=== PATIENT | female | born 1960 | race Caucasian/White ===

== ENCOUNTER 2016-02-25 12:54 | Outpatient (RCR) | payer BC ==
--- OUTSIDE RECORDS SUMMARY | 2016-02-18 11:45 | XMS REPORT | Continuity of Care Document ---
Author Author [facility] Organization [facility] Address Unknown Phone Unavailable Care Team Providers Care Film Waxer Name Role Phone JULIOCESAR MEJÍA PCP Insurance Providers Payer Name Policy Number Subscriber Name Relationship [facility] [id number] Gay Bauman 16 Self / Same As Patient Problems No known problems or medical conditions. Medications No known medications. Social History Social History Problem Response Recorded Date/Time Recent Foreign Travel N [place] 06/11/2014 3:15pm Hospital Discharge Instructions No hospital discharge instructions. Plan of Care No plan of care. Functional Status No functional status results. Allergies, Adverse Reactions, Alerts No known allergies. Immunizations No immunization records. Vital Signs No known vital signs results. Results Laboratory Results Test Name Result Units Flags Reference Collection Date/Time Result Date/ Time Comments White Blood Count 7.6 10^3/uL 4.3-11.0 06/11/2014 4:17pm 06/11/2014 4: 28pm Red Blood Count 5.02 10^6/uL 4.35-5.85 06/11/2014 4:17pm 06/11/2014 4: 28pm Hemoglobin 16.3 G/DL H 11.5-16.0 06/11/2014 4:17pm 06/11/2014 4:28pm Hematocrit 47 % 35-52 06/11/2014 4:17pm 06/11/2014 4:28pm Mean Corpuscular Volume 94 FL 80-99 06/11/2014 4:1706/11/2014 4: 28pm Mean Corpuscular Hemoglobin 32 PG 25-34 06/11/2014 4:06/11/2014 4: 28pm Mean Corpuscular Hemoglobin Concent 34 G/DL 32-36 06/11/2014 4: 4:28pm Red Cell Distribution Width 12.9 % 10.0-14.5 06/11/2014 4:2014 4:28pm Platelet Count 234 10^3/uL 130-400 06/11/2014 4:06/11/2014 4:28pm Mean Platelet Volume 10.4 FL 7.4-10.4 06/11/2014 4:06/11/2014 4: 28pm Neutrophils (%) (Auto) 63 % 42-75 06/11/2014 4:06/11/2014 4:28pm Lymphocytes (%) (Auto) 26 % 12-44 06/11/2014 4:06/11/2014 4:28pm Monocytes (%) (Auto) 8 % 0-12 06/11/2014 4:06/11/2014 4:28pm Eosinophils (%) (Auto) 3 % 0-10 06/11/2014 4:06/11/2014 4:28pm Basophils (%) (Auto) 1 % 0-10 06/11/2014 4:06/11/2014 4:28pm Neutrophils # (Auto) 4.8 X 10^3 1.8-7.8 06/11/2014 4:06/11/2014 4: 28pm Lymphocytes # (Auto) 2.0 X 10^3 1.0-4.0 06/11/2014 4:06/11/2014 4: 28pm Monocytes # (Auto) 0.6 X 10^3 0.0-1.0 06/11/2014 4:06/11/2014 4: 28pm Eosinophils # (Auto) 0.2 10^3/uL 0.0-0.3 06/11/2014 4:06/11/2014 4 :28pm Basophils # (Auto) 0.1 10^3/uL 0.0-0.1 06/11/2014 4:06/11/2014 4: 28pm Absolute Reticulocyte Count 71 10e9/L 24-90 06/11/2014 4:2014 4:28pm Percent Reticulocyte Count 1.42 % 0.50-2.40 06/11/2014 4:pm 2014 4:28pm Sodium Level 139 MMOL/L 135-145 06/11/2014 4:06/11/2014 4:55pm Potassium Level 3.6 MMOL/L 3.6-5.0 06/11/2014 4:06/11/2014 4:55pm Chloride Level 105 MMOL/L 98-107 06/11/2014 4:06/11/2014 4:55pm Carbon Dioxide Level 25 MMOL/L 21-32 06/11/2014 4:06/11/2014 4: 55pm Blood Urea Nitrogen 21 MG/DL H 7-18 06/11/2014 4:06/11/2014 4:55pm Creatinine 0.91 MG/DL 0.60-1.30 06/11/2014 4:06/11/2014 4:55pm BUN/Creatinine Ratio 06/11/2014 4:06/11/2014 4:55pm Estimat Glomerular Filtration Rate > 60 06/11/2014 4:2014 4:55pm GFR INTERPRETIVE DATA UNITS FOR ESTIMATED GFR (eGFR): mL/min/1.73 M2 REFERENCE RANGE FOR ESTIMATED GFR (eGFR) eGFR NORMAL eGFR >60 MODERATELY DECREASED eGFR 30-59 SEVERLY DECREASED eGFR 15-29 KIDNEY FAILURE <15 (OR DIALYSIS) Glucose Level 88 MG/DL 70-105 06/11/2014 4:06/11/2014 4:55pm Calcium Level 9.8 MG/DL 8.5-10.1 06/11/2014 4:06/11/2014 4:55pm Total Bilirubin 0.4 MG/DL 0.1-1.0 06/11/2014 4:06/11/2014 4:55pm Alkaline Phosphatase 64 U/L 40-136 06/11/2014 4:06/11/2014 4:55pm Aspartate Amino Transf (AST/SGOT) 25 U/L 5-34 06/11/2014 4:2014 4:55pm Alanine Aminotransferase (ALT/SGPT) 26 U/L 0-55 06/11/2014 4:17pm 06/11 4:55pm Lactate Dehydrogenase 246 U/L H 125-220 06/11/2014 4:17pm 06/11/2014 4: 55pm Total Protein 7.6 G/DL 6.4-8.2 06/11/2014 4:17pm 06/11/2014 4:55pm Albumin 4.5 G/DL 3.2-4.5 06/11/2014 4:17pm 06/11/2014 4:55pm Carboxyhemoglobin 2.0 % 0.5-2.5 06/11/2014 4:17pm 06/11/2014 4:36pm REFERENCE RANGE=0.5% - 2.5% SMOKERS=0.5% - 6.0% TOXIC LEVELS=>10% Erythropoietin 9.7 MIU/ML 2.6-18.5 06/11/2014 4:17pm 06/17/2014 8:15am THIS TEST WAS PERFORMED AT: [facility] [address] [id number] Ferritin 293 H NG/ML 15-150 06/11/2014 4:17pm 06/13/2014 3:24pm RESULT ON [facility] LELXUHOJP=128 NG/ML --- 06/13/14 1522 --- FERRITIN previously reported as: 293 H NG/ML Iron Level 106 UG/DL 35-180 06/11/2014 4:17pm 06/13/2014 3:24pm RESULT ON [facility] [id number]=086 UG/DL --- 06/13/14 1523 --- IRON previously reported as: 106 UG/DL Transferrin % Saturation 37 % 15-50 06/11/2014 4:17pm 06/13/2014 3: 24pm RESULT ON [facility] WASTE RECLAIMER=41% --- 06/13/14 1523 --- % SATURATION previously reported as: 37 % Total Iron Binding Capacity 284 UG/DL 280-380 06/11/2014 4:17pm 2014 3:24pm TESTING PERFORMED BY: [facility] [id number] [facility] [address] [place] [address] RESULT ON [facility] MZRUFEJYK=966 UG/DL --- 06/13/14 1523 --- TIBC previously reported as: 284 UG/DL TESTING PERFORMED BY: [facility] [address] [place] [address] Procedures No known history of procedures. Encounters Encounter Location Date/Time Discharged Recurring [facility] 07/01/14 1:31pm
[2016-02-18 12:16] LABS: BASOPHILS % (AUTO) 0 % (0-10); EOSINOPHILS # (AUTO) 0.1 10^3/uL (0.0-0.3); EOSINOPHILS % (AUTO) 1 % (0-10); LYMPHOCYTES # (AUTO) 1.6 X 10^3 (1.0-4.0); LYMPHOCYTES % (AUTO) 26 % (12-44); MEAN CORPUSCULAR HEMOGLOBIN 28 PG (25-34); MEAN CORPUSCULAR HGB CONC 33 G/DL (32-36); MEAN CORPUSCULAR VOLUME 86 FL (80-99); MEAN PLATELET VOLUME 10.7 FL (7.4-10.4); MONOCYTES # (AUTO) 0.6 X 10^3 (0.0-1.0); MONOCYTES % (AUTO) 9 % (0-12); NEUTROPHILS # (AUTO) 4.1 X 10^3 (1.8-7.8); NEUTROPHILS % (AUTO) 64 % (42-75); PLATELET COUNT 244 10^3/uL (130-400); RED BLOOD COUNT 5.12 10^6/uL (4.35-5.85); RED CELL DISTRIBUTION WIDTH 15.2 % (10.0-14.5); WHITE BLOOD COUNT 6.4 10^3/uL (4.3-11.0)
[2016-02-18 12:41] LABS: ALBUMIN 4.3 G/DL (3.2-4.5); BILIRUBIN,TOTAL 0.3 MG/DL (0.1-1.0); CALCIUM 9.3 MG/DL (8.5-10.1); CREATININE SERUM 0.98 MG/DL (0.60-1.30); POTASSIUM 3.9 MMOL/L (3.6-5.0)
== END 2016-05-18 | disposition home or self-care (01) ==
LOC: ONC 12:54
PROVIDERS: ATTEND Internal Medicine Hematology & Oncology
DX: E83.110 Hereditary hemochromatosis (principal); D58.2 Other hemoglobinopathies; E66.9 Obesity, unspecified; Z68.30 Body mass index [BMI] 30.0-30.9, adult
CPT/HCPCS: 80053; 82728; 85025; 99213

== ENCOUNTER 2016-06-09 10:17 | Outpatient (RCR) | payer BC ==
--- OUTSIDE RECORDS SUMMARY | 2016-06-09 10:20 | XMS REPORT | Continuity of Care Document ---
Author Author [facility] Organization [facility] Address Unknown Phone Unavailable Care Team Providers Care Cashier Ticket Selling Name Role Phone TRINIDAD MEJÍA DO PCP Insurance Providers Payer Name Policy Number Subscriber Name Relationship [facility] [id number] Jevon Bauman W 01 Problems No problem information available. Medications No medication information available. Social History Social History Problem Response Recorded Date/Time Recent Foreign Travel N [place] 02/18/2016 11:41am Hospital Discharge Instructions No hospital discharge instructions. Plan of Care Prescriptions See Medication Section Functional Status No functional status results. Allergies, Adverse Reactions, Alerts Unable to obtain allergies. Immunizations No immunization records. Vital Signs No known vital signs results. Results Laboratory Results Test Name Result Units Flags Reference Collection Date/Time Result Date/ Time Comments White Blood Count 6.4 10^3/uL 4.3-11.0 02/18/2016 12:00pm 02/18/2016 12 :18pm Red Blood Count 5.12 10^6/uL 4.35-5.85 02/18/2016 12:00pm 02/18/2016 12 :18pm Hemoglobin 14.4 G/DL 11.5-16.0 02/18/2016 12:00pm 02/18/2016 12:18pm Hematocrit 44 % 35-52 02/18/2016 12:00pm 02/18/2016 12:18pm Mean Corpuscular Volume 86 FL 80-99 02/18/2016 12:00pm 02/18/2016 12: 18pm Mean Corpuscular Hemoglobin 28 PG 25-34 02/18/2016 12:00pm 02/18/2016 12:18pm Mean Corpuscular Hemoglobin Concent 33 G/DL 32-36 02/18/2016 12:00pm 12:18pm Red Cell Distribution Width 15.2 % H 10.0-14.5 02/18/2016 12:00pm 2015 12:18pm Platelet Count 244 10^3/uL 130-400 02/18/2016 12:00pm 02/18/2016 12: 18pm Mean Platelet Volume 10.7 FL H 7.4-10.4 02/18/2016 12:00pm 02/18/2016 12: 18pm Neutrophils (%) (Auto) 64 % 42-75 02/18/2016 12:00pm 02/18/2016 12: 18pm Lymphocytes (%) (Auto) 26 % 12-44 02/18/2016 12:00pm 02/18/2016 12: 18pm Monocytes (%) (Auto) 9 % 0-12 02/18/2016 12:00pm 02/18/2016 12:18pm Eosinophils (%) (Auto) 1 % 0-10 02/18/2016 12:00pm 02/18/2016 12:18pm Basophils (%) (Auto) 0 % 0-10 02/18/2016 12:00pm 02/18/2016 12:18pm Neutrophils # (Auto) 4.1 X 10^3 1.8-7.8 02/18/2016 12:00pm 02/18/2016 12:18pm Lymphocytes # (Auto) 1.6 X 10^3 1.0-4.0 02/18/2016 12:00pm 02/18/2016 12:18pm Monocytes # (Auto) 0.6 X 10^3 0.0-1.0 02/18/2016 12:00pm 02/18/2016 12: 18pm Eosinophils # (Auto) 0.1 10^3/uL 0.0-0.3 02/18/2016 12:00pm 02/18/2016 12:18pm Basophils # (Auto) 0.0 10^3/uL 0.0-0.1 02/18/2016 12:00pm 02/18/2016 12 :18pm Sodium Level 139 MMOL/L 135-145 02/18/2016 12:00pm 02/18/2016 12:42pm Potassium Level 3.9 MMOL/L 3.6-5.0 02/18/2016 12:00pm 02/18/2016 12: 42pm Chloride Level 110 MMOL/L H 98-107 02/18/2016 12:00pm 02/18/2016 12:42pm Carbon Dioxide Level 17 MMOL/L L 21-32 02/18/2016 12:00pm 02/18/2016 12: 42pm Anion Gap 12 MMOL/L 5-14 02/18/2016 12:00pm 02/18/2016 12:42pm Blood Urea Nitrogen 16 MG/DL 7-18 02/18/2016 12:00pm 02/18/2016 12: 42pm Creatinine 0.98 MG/DL 0.60-1.30 02/18/2016 12:00pm 02/18/2016 12:42pm BUN/Creatinine Ratio 16 02/18/2016 12:00pm 02/18/2016 12:42pm Estimat Glomerular Filtration Rate 58 02/18/2016 12:00pm 2015 12:42pm GFR INTERPRETIVE DATA UNITS FOR ESTIMATED GFR (eGFR): mL/min/1.73 M2 REFERENCE RANGE FOR ESTIMATED GFR (eGFR) eGFR NORMAL eGFR >60 MODERATELY DECREASED eGFR 30-59 SEVERLY DECREASED eGFR 15-29 KIDNEY FAILURE <15 (OR DIALYSIS) Glucose Level 97 MG/DL 70-105 02/18/2016 12:00pm 02/18/2016 12:42pm Calcium Level 9.3 MG/DL 8.5-10.1 02/18/2016 12:00pm 02/18/2016 12:42pm Total Bilirubin 0.3 MG/DL 0.1-1.0 02/18/2016 12:00pm 02/18/2016 12: 42pm Alkaline Phosphatase 75 U/L 40-136 02/18/2016 12:00pm 02/18/2016 12: 42pm Aspartate Amino Transf (AST/SGOT) 18 U/L 5-34 02/18/2016 12:00pm 2015 12:42pm Alanine Aminotransferase (ALT/SGPT) 19 U/L 0-55 02/18/2016 12:00pm 09/2015 12:42pm Total Protein 7.0 G/DL 6.4-8.2 02/18/2016 12:00pm 02/18/2016 12:42pm Albumin 4.3 G/DL 3.2-4.5 02/18/2016 12:00pm 02/18/2016 12:42pm Ferritin 21 ng/mL 15-150 02/18/2016 12:00pm 02/19/2016 7:50am Test performed at [facility], CLIA# [id number] [address] [place] [address] Procedures No known history of procedures. Encounters Encounter Location Arrival/Admit Date Discharge/Depart Date Attending Provider Discharged Recurring [facility] 02/25/16 12:54pm 11:59pm BO VALLEJO N
[2016-06-09 10:48] LABS: BASOPHILS % (AUTO) 0 % (0-10); EOSINOPHILS # (AUTO) 0.1 10^3/uL (0.0-0.3); EOSINOPHILS % (AUTO) 1 % (0-10); LYMPHOCYTES # (AUTO) 1.8 X 10^3 (1.0-4.0); LYMPHOCYTES % (AUTO) 24 % (12-44); MEAN CORPUSCULAR HEMOGLOBIN 29 PG (25-34); MEAN CORPUSCULAR HGB CONC 34 G/DL (32-36); MEAN CORPUSCULAR VOLUME 86 FL (80-99); MEAN PLATELET VOLUME 10.3 FL (7.4-10.4); MONOCYTES # (AUTO) 0.7 X 10^3 (0.0-1.0); MONOCYTES % (AUTO) 10 % (0-12); NEUTROPHILS # (AUTO) 4.8 X 10^3 (1.8-7.8); NEUTROPHILS % (AUTO) 65 % (42-75); PLATELET COUNT 287 10^3/uL (130-400); RED BLOOD COUNT 5.23 10^6/uL (4.35-5.85); RED CELL DISTRIBUTION WIDTH 14.9 % (10.0-14.5); WHITE BLOOD COUNT 7.4 10^3/uL (4.3-11.0)
[2016-06-09 11:22] LABS: ALANINE AMINOTRANSFERASE 28 U/L (0-55); ALBUMIN 4.5 G/DL (3.2-4.5); ANION GAP 10 MMOL/L (5-14); ASPARTATE AMINO TRANSFERASE 23 U/L (5-34); BILIRUBIN,TOTAL 0.5 MG/DL (0.1-1.0); BLOOD UREA NITROGEN 13 MG/DL (7-18); BUN/CREATININE RATIO 15; CALCIUM 9.3 MG/DL (8.5-10.1); CARBON DIOXIDE 20 MMOL/L (21-32); CHLORIDE 109 MMOL/L (98-107); CREATININE SERUM 0.88 MG/DL (0.60-1.30); GFR ESTIMATED > 60; GLUCOSE 96 MG/DL (70-105); POTASSIUM 3.7 MMOL/L (3.6-5.0); SODIUM 139 MMOL/L (135-145); TOTAL PROTEIN 7.2 G/DL (6.4-8.2)
== END 2016-09-07 | disposition home or self-care (01) ==
LOC: ONC 10:17
PROVIDERS: ATTEND Internal Medicine Hematology & Oncology
DX: D58.2 Other hemoglobinopathies (principal)
CPT/HCPCS: 36415; 80053; 82728; 85025; 99195; 99213

== ENCOUNTER 2016-10-06 10:50 | Outpatient (RCR) | payer BC ==
[2016-09-29 10:28] LABS: BASOPHILS % (AUTO) 0 % (0-10); EOSINOPHILS % (AUTO) 1 % (0-10); LYMPHOCYTES # (AUTO) 1.6 X 10^3 (1.0-4.0); LYMPHOCYTES % (AUTO) 21 % (12-44); MEAN CORPUSCULAR HEMOGLOBIN 30 PG (25-34); MEAN CORPUSCULAR HGB CONC 34 G/DL (32-36); MEAN CORPUSCULAR VOLUME 90 FL (80-99); MEAN PLATELET VOLUME 10.2 FL (7.4-10.4); MONOCYTES # (AUTO) 0.7 X 10^3 (0.0-1.0); MONOCYTES % (AUTO) 9 % (0-12); NEUTROPHILS # (AUTO) 5.3 X 10^3 (1.8-7.8); NEUTROPHILS % (AUTO) 69 % (42-75); PLATELET COUNT 273 10^3/uL (130-400); RED BLOOD COUNT 5.06 10^6/uL (4.35-5.85); RED CELL DISTRIBUTION WIDTH 15.9 % (10.0-14.5); WHITE BLOOD COUNT 7.6 10^3/uL (4.3-11.0)
[2016-09-29 10:51] LABS: ALBUMIN 4.2 G/DL (3.2-4.5); BILIRUBIN,TOTAL 0.5 MG/DL (0.1-1.0); CALCIUM 9.4 MG/DL (8.5-10.1); CREATININE SERUM 0.98 MG/DL (0.60-1.30); POTASSIUM 3.7 MMOL/L (3.6-5.0); TOTAL PROTEIN 6.9 G/DL (6.4-8.2)
== END 2016-12-28 | disposition home or self-care (01) ==
LOC: ONC 10:50
PROVIDERS: ATTEND Internal Medicine Hematology & Oncology
DX: E83.110 Hereditary hemochromatosis (principal); D58.2 Other hemoglobinopathies; E66.9 Obesity, unspecified; Z68.30 Body mass index [BMI] 30.0-30.9, adult
CPT/HCPCS: 36415; 80053; 82728; 85025; 99213

== ENCOUNTER 2017-01-31 09:18 | Outpatient (RCR) | payer BC ==
[2017-01-26 10:21] LABS: BASOPHILS % (AUTO) 1 % (0-10); EOSINOPHILS # (AUTO) 0.1 10^3/uL (0.0-0.3); EOSINOPHILS % (AUTO) 2 % (0-10); LYMPHOCYTES # (AUTO) 1.6 X 10^3 (1.0-4.0); LYMPHOCYTES % (AUTO) 25 % (12-44); MEAN CORPUSCULAR HEMOGLOBIN 29 PG (25-34); MEAN CORPUSCULAR HGB CONC 33 G/DL (32-36); MEAN CORPUSCULAR VOLUME 89 FL (80-99); MEAN PLATELET VOLUME 10.9 FL (7.4-10.4); MONOCYTES # (AUTO) 0.6 X 10^3 (0.0-1.0); MONOCYTES % (AUTO) 10 % (0-12); NEUTROPHILS # (AUTO) 4.2 X 10^3 (1.8-7.8); NEUTROPHILS % (AUTO) 64 % (42-75); PLATELET COUNT 238 10^3/uL (130-400); RED BLOOD COUNT 4.95 10^6/uL (4.35-5.85); RED CELL DISTRIBUTION WIDTH 13.8 % (10.0-14.5); WHITE BLOOD COUNT 6.6 10^3/uL (4.3-11.0)
[2017-01-26 10:34] LABS: ALBUMIN 4.1 GM/DL (3.2-4.5); BILIRUBIN,TOTAL 0.4 MG/DL (0.1-1.0); CALCIUM 9.2 MG/DL (8.5-10.1); CREATININE SERUM 0.95 MG/DL (0.60-1.30); POTASSIUM 3.8 MMOL/L (3.6-5.0); TOTAL PROTEIN 7.3 GM/DL (6.4-8.2)
== END 2017-02-07 08:35 | disposition home or self-care (01) ==
LOC: ONC 09:18
PROVIDERS: ATTEND Internal Medicine Hematology & Oncology
DX: E83.110 Hereditary hemochromatosis (principal); D58.2 Other hemoglobinopathies; E66.9 Obesity, unspecified; Z68.30 Body mass index [BMI] 30.0-30.9, adult
CPT/HCPCS: 36415; 80053; 82728; 85025; 99213

== ENCOUNTER 2017-06-22 13:34 | Outpatient (RCR) | payer BC ==
[2017-06-22 13:55] LABS: BASOPHILS % (AUTO) 0 % (0-10); EOSINOPHILS # (AUTO) 0.1 10^3/uL (0.0-0.3); EOSINOPHILS % (AUTO) 1 % (0-10); HEMATOCRIT 47 % (35-52); HEMOGLOBIN 16.2 G/DL (11.5-16.0); LYMPHOCYTES # (AUTO) 1.6 X 10^3 (1.0-4.0); LYMPHOCYTES % (AUTO) 21 % (12-44); MEAN CORPUSCULAR HEMOGLOBIN 31 PG (25-34); MEAN CORPUSCULAR HGB CONC 34 G/DL (32-36); MEAN CORPUSCULAR VOLUME 89 FL (80-99); MEAN PLATELET VOLUME 10.8 FL (7.4-10.4); MONOCYTES # (AUTO) 0.6 X 10^3 (0.0-1.0); MONOCYTES % (AUTO) 8 % (0-12); NEUTROPHILS # (AUTO) 5.3 X 10^3 (1.8-7.8); NEUTROPHILS % (AUTO) 70 % (42-75); PLATELET COUNT 216 10^3/uL (130-400); RED CELL DISTRIBUTION WIDTH 14.4 % (10.0-14.5); WHITE BLOOD COUNT 7.6 10^3/uL (4.3-11.0)
[2017-06-22 14:14] LABS: ALBUMIN 4.3 GM/DL (3.2-4.5); BILIRUBIN,TOTAL 0.5 MG/DL (0.1-1.0); CALCIUM 9.4 MG/DL (8.5-10.1); CREATININE SERUM 1.23 MG/DL (0.60-1.30); POTASSIUM 3.8 MMOL/L (3.6-5.0); TOTAL PROTEIN 7.6 GM/DL (6.4-8.2)
== END 2017-09-20 | disposition home or self-care (01) ==
LOC: ONC 13:34
PROVIDERS: ATTEND Internal Medicine Hematology & Oncology
DX: E83.110 Hereditary hemochromatosis (principal); D58.2 Other hemoglobinopathies; E66.9 Obesity, unspecified; Z68.30 Body mass index [BMI] 30.0-30.9, adult
CPT/HCPCS: 36415; 80053; 82728; 85025; 99195

== ENCOUNTER 2018-01-04 12:49 | Outpatient (RCR) | payer BC ==
[2017-12-28 10:10] LABS: BASOPHILS % (AUTO) 0 % (0-10); EOSINOPHILS # (AUTO) 0.1 10^3/uL (0.0-0.3); EOSINOPHILS % (AUTO) 2 % (0-10); HEMATOCRIT 44 % (35-52); HEMOGLOBIN 15.1 G/DL (11.5-16.0); LYMPHOCYTES # (AUTO) 1.8 X 10^3 (1.0-4.0); LYMPHOCYTES % (AUTO) 26 % (12-44); MEAN CORPUSCULAR HEMOGLOBIN 32 PG (25-34); MEAN CORPUSCULAR HGB CONC 34 G/DL (32-36); MEAN CORPUSCULAR VOLUME 93 FL (80-99); MEAN PLATELET VOLUME 10.5 FL (7.4-10.4); MONOCYTES # (AUTO) 0.8 X 10^3 (0.0-1.0); MONOCYTES % (AUTO) 11 % (0-12); NEUTROPHILS # (AUTO) 4.2 X 10^3 (1.8-7.8); NEUTROPHILS % (AUTO) 61 % (42-75); PLATELET COUNT 238 10^3/uL (130-400); RED BLOOD COUNT 4.79 10^6/uL (4.35-5.85); RED CELL DISTRIBUTION WIDTH 13.6 % (10.0-14.5); WHITE BLOOD COUNT 6.9 10^3/uL (4.3-11.0)
[2017-12-28 10:32] LABS: ALANINE AMINOTRANSFERASE 26 U/L (0-55); ALBUMIN 4.2 GM/DL (3.2-4.5); ALKALINE PHOSPHATASE 67 U/L (40-136); BILIRUBIN,TOTAL 0.4 MG/DL (0.1-1.0); BUN/CREATININE RATIO 17; CARBON DIOXIDE 20 MMOL/L (21-32); CHLORIDE 110 MMOL/L (98-107); CREATININE SERUM 0.83 MG/DL (0.60-1.30); GFR ESTIMATED > 60; GLUCOSE 89 MG/DL (70-105); SODIUM 139 MMOL/L (135-145); TOTAL PROTEIN 6.8 GM/DL (6.4-8.2)
== END 2018-01-13 | disposition home or self-care (01) ==
LOC: ONC 12:49
PROVIDERS: ATTEND Internal Medicine Hematology & Oncology
DX: E83.110 Hereditary hemochromatosis (principal); D58.2 Other hemoglobinopathies; E66.9 Obesity, unspecified; Z68.30 Body mass index [BMI] 30.0-30.9, adult
CPT/HCPCS: 36415; 80053; 82728; 85025; 99213

== ENCOUNTER 2018-07-05 12:50 | Outpatient (RCR) | payer BC ==
[2018-06-28 08:38] LABS: BASOPHILS % (AUTO) 0 % (0-10); EOSINOPHILS # (AUTO) 0.1 10^3/uL (0.0-0.3); EOSINOPHILS % (AUTO) 2 % (0-10); HEMATOCRIT 47 % (35-52); HEMOGLOBIN 16.4 G/DL (11.5-16.0); LYMPHOCYTES # (AUTO) 1.7 X 10^3 (1.0-4.0); LYMPHOCYTES % (AUTO) 28 % (12-44); MEAN CORPUSCULAR HEMOGLOBIN 31 PG (25-34); MEAN CORPUSCULAR HGB CONC 35 G/DL (32-36); MEAN CORPUSCULAR VOLUME 91 FL (80-99); MEAN PLATELET VOLUME 10.6 FL (7.4-10.4); MONOCYTES # (AUTO) 0.6 X 10^3 (0.0-1.0); MONOCYTES % (AUTO) 9 % (0-12); NEUTROPHILS # (AUTO) 3.8 X 10^3 (1.8-7.8); NEUTROPHILS % (AUTO) 61 % (42-75); PLATELET COUNT 234 10^3/uL (130-400); RED CELL DISTRIBUTION WIDTH 13.3 % (10.0-14.5); WHITE BLOOD COUNT 6.2 10^3/uL (4.3-11.0)
[2018-06-28 09:01] LABS: ALANINE AMINOTRANSFERASE 20 U/L (0-55); ALBUMIN 4.5 GM/DL (3.2-4.5); ALKALINE PHOSPHATASE 81 U/L (40-136); BILIRUBIN,TOTAL 0.6 MG/DL (0.1-1.0); BUN/CREATININE RATIO 14; CALCIUM 9.5 MG/DL (8.5-10.1); CARBON DIOXIDE 23 MMOL/L (21-32); CHLORIDE 107 MMOL/L (98-107); CREATININE SERUM 0.92 MG/DL (0.60-1.30); GFR ESTIMATED > 60; GLUCOSE 94 MG/DL (70-105); SODIUM 140 MMOL/L (135-145); TOTAL PROTEIN 7.5 GM/DL (6.4-8.2)
== END 2018-09-26 | disposition home or self-care (01) ==
LOC: ONC 12:50
PROVIDERS: ATTEND Internal Medicine Hematology & Oncology
DX: E83.110 Hereditary hemochromatosis (principal); D58.2 Other hemoglobinopathies; E66.9 Obesity, unspecified; Z68.30 Body mass index [BMI] 30.0-30.9, adult
CPT/HCPCS: 36415; 80053; 82728; 85025; 99195

== ENCOUNTER → 2018-10-13 | Outpatient (CLI) | payer BC ==
[~2018-10-13] MED LIST: CATHETER FLUSH 10 ML SYR IV PRN
--- NOTE | 2018-10-13 15:43 | STRESS TEST ---
DATE OF SERVICE: 10/13/2018 NUCLEAR MYOVIEW REPORT REFERRING PHYSICIAN: Chester Harley DO. In summary, the patient was injected with 10.51 mCi of technetium-99 Myoview and the resting images were obtained. Then, the patient received 30.1 mCi of technetium-99 Myoview and the stress images were acquired. The resting and stress images were compared and reviewed in the short axis, horizontal long axis, and vertical long axis views. This was supervised by Dr. Harley. There is no significant ischemia, breast attenuation was noted, no infarction. SSS is 5, SDS 3, and TID value 1.0. On the gated images, the left ventricle appeared to be normal size with normal contractility. Calculated ejection fraction is 71%. CONCLUSION: 1. Typical female pattern with no significant ischemia or infarction on SPECT images. 2. Normal left ventricular size with normal contractility. Calculated ejection fraction is 71%. Job ID: [id number] DocumentID: [id number] Dictated Date: 10/13/2018 13:31:46 Diving Fisher Date: 10/13/2018 15:42:30 Dictated By: SUHAIL ALMANZAR MD
== END ==
LOC: CARD 06:43
PROVIDERS: ATTEND Internal Medicine
DX: R53.83 Other fatigue (principal)
CPT/HCPCS: 78452; 93017

== ENCOUNTER 2019-01-03 12:41 | Outpatient (RCR) | payer BC ==
[2018-12-27 12:20] LABS: BASOPHILS % (AUTO) 0 % (0-10); EOSINOPHILS # (AUTO) 0.1 10^3/uL (0.0-0.3); EOSINOPHILS % (AUTO) 1 % (0-10); HEMATOCRIT 45 % (35-52); HEMOGLOBIN 15.6 G/DL (11.5-16.0); LYMPHOCYTES # (AUTO) 1.7 X 10^3 (1.0-4.0); LYMPHOCYTES % (AUTO) 22 % (12-44); MEAN CORPUSCULAR HEMOGLOBIN 31 PG (25-34); MEAN CORPUSCULAR HGB CONC 34 G/DL (32-36); MEAN CORPUSCULAR VOLUME 91 FL (80-99); MEAN PLATELET VOLUME 10.6 FL (7.4-10.4); MONOCYTES # (AUTO) 0.6 X 10^3 (0.0-1.0); MONOCYTES % (AUTO) 8 % (0-12); NEUTROPHILS # (AUTO) 5.4 X 10^3 (1.8-7.8); NEUTROPHILS % (AUTO) 69 % (42-75); PLATELET COUNT 224 10^3/uL (130-400); RED CELL DISTRIBUTION WIDTH 14.1 % (10.0-14.5); WHITE BLOOD COUNT 7.8 10^3/uL (4.3-11.0)
[2018-12-27 12:41] LABS: ALANINE AMINOTRANSFERASE 23 U/L (0-55); ALBUMIN 4.2 GM/DL (3.2-4.5); ALKALINE PHOSPHATASE 73 U/L (40-136); BUN/CREATININE RATIO 19; CALCIUM 9.6 MG/DL (8.5-10.1); CARBON DIOXIDE 25 MMOL/L (21-32); CHLORIDE 104 MMOL/L (98-107); CREATININE SERUM 0.85 MG/DL (0.60-1.30); GFR ESTIMATED > 60; GLUCOSE 95 MG/DL (70-105); POTASSIUM 3.3 MMOL/L (3.6-5.0); SODIUM 139 MMOL/L (135-145); TOTAL PROTEIN 7.1 GM/DL (6.4-8.2)
[2018-12-27 12:53] LABS: BILIRUBIN,TOTAL 0.5 MG/DL (0.1-1.0)
== END 2019-03-27 | disposition home or self-care (01) ==
LOC: ONC 12:41
PROVIDERS: ATTEND Internal Medicine Hematology & Oncology
DX: E83.110 Hereditary hemochromatosis (principal); D58.2 Other hemoglobinopathies; E66.9 Obesity, unspecified; Z68.30 Body mass index [BMI] 30.0-30.9, adult
CPT/HCPCS: 36415; 80053; 82728; 85025; 99195

== ENCOUNTER 2019-07-03 09:27 | Outpatient (RCR) | payer BC ==
[2019-06-26 10:43] LABS: BASOPHILS % (AUTO) 0 % (0-10); EOSINOPHILS # (AUTO) 0.1 10^3/uL (0.0-0.3); EOSINOPHILS % (AUTO) 1 % (0-10); HEMATOCRIT 47 % (35-52); LYMPHOCYTES # (AUTO) 1.6 X 10^3 (1.0-4.0); LYMPHOCYTES % (AUTO) 22 % (12-44); MEAN CORPUSCULAR HEMOGLOBIN 31 PG (25-34); MEAN CORPUSCULAR HGB CONC 34 G/DL (32-36); MEAN CORPUSCULAR VOLUME 92 FL (80-99); MEAN PLATELET VOLUME 11.1 FL (7.4-10.4); MONOCYTES # (AUTO) 0.5 X 10^3 (0.0-1.0); MONOCYTES % (AUTO) 7 % (0-12); NEUTROPHILS % (AUTO) 69 % (42-75); PLATELET COUNT 217 10^3/uL (130-400); RED CELL DISTRIBUTION WIDTH 14.2 % (10.0-14.5); WHITE BLOOD COUNT 7.2 10^3/uL (4.3-11.0)
[2019-06-26 11:03] LABS: ALBUMIN 4.3 GM/DL (3.2-4.5); BILIRUBIN,TOTAL 0.4 MG/DL (0.1-1.0); CALCIUM 9.3 MG/DL (8.5-10.1); CREATININE SERUM 0.96 MG/DL (0.60-1.30)
== END 2019-09-24 | disposition home or self-care (01) ==
LOC: ONC 09:27
PROVIDERS: ATTEND Internal Medicine Hematology & Oncology
DX: E83.110 Hereditary hemochromatosis (principal); D58.2 Other hemoglobinopathies; E66.9 Obesity, unspecified; Z68.30 Body mass index [BMI] 30.0-30.9, adult
CPT/HCPCS: 80053; 82728; 85025; 99213

== ENCOUNTER 2020-01-22 10:29 | Outpatient (RCR) | payer BC ==
[2020-01-08 10:29] LABS: BASOPHILS % (AUTO) 0 % (0-10); EOSINOPHILS # (AUTO) 0.1 10^3/uL (0.0-0.3); EOSINOPHILS % (AUTO) 1 % (0-10); HEMATOCRIT 47 % (35-52); HEMOGLOBIN 16.1 G/DL (11.5-16.0); LYMPHOCYTES # (AUTO) 1.7 X 10^3 (1.0-4.0); LYMPHOCYTES % (AUTO) 19 % (12-44); MEAN CORPUSCULAR HEMOGLOBIN 31 PG (25-34); MEAN CORPUSCULAR HGB CONC 34 G/DL (32-36); MEAN CORPUSCULAR VOLUME 91 FL (80-99); MEAN PLATELET VOLUME 10.4 FL (7.4-10.4); MONOCYTES # (AUTO) 0.9 X 10^3 (0.0-1.0); MONOCYTES % (AUTO) 10 % (0-12); NEUTROPHILS # (AUTO) 6.1 X 10^3 (1.8-7.8); NEUTROPHILS % (AUTO) 69 % (42-75); PLATELET COUNT 307 10^3/uL (130-400); WHITE BLOOD COUNT 8.8 10^3/uL (4.3-11.0)
[2020-01-08 10:46] LABS: ALANINE AMINOTRANSFERASE 45 U/L (0-55); ALBUMIN 4.2 GM/DL (3.2-4.5); ALKALINE PHOSPHATASE 85 U/L (40-136); BILIRUBIN,TOTAL 0.5 MG/DL (0.1-1.0); BUN/CREATININE RATIO 15; CALCIUM 9.2 MG/DL (8.5-10.1); CARBON DIOXIDE 22 MMOL/L (21-32); CHLORIDE 104 MMOL/L (98-107); CREATININE SERUM 0.94 MG/DL (0.60-1.30); GFR ESTIMATED > 60; GLUCOSE 96 MG/DL (70-105); POTASSIUM 3.7 MMOL/L (3.6-5.0); SODIUM 137 MMOL/L (135-145); TOTAL PROTEIN 7.3 GM/DL (6.4-8.2)
== END 2020-04-07 | disposition home or self-care (01) ==
LOC: ONC 10:29
PROVIDERS: ATTEND Internal Medicine Hematology & Oncology
DX: E83.110 Hereditary hemochromatosis (principal); D58.2 Other hemoglobinopathies; E66.9 Obesity, unspecified; Z68.30 Body mass index [BMI] 30.0-30.9, adult
CPT/HCPCS: 80053; 82728; 85025; 99195

== ENCOUNTER 2020-04-24 14:50 | Outpatient (RCR) | payer BC ==
[2020-04-24 14:58] LABS: BASOPHILS % (AUTO) 1 % (0-10); EOSINOPHILS # (AUTO) 0.1 10^3/uL (0.0-0.3); EOSINOPHILS % (AUTO) 1 % (0-10); HEMATOCRIT 47 % (35-52); HEMOGLOBIN 15.8 g/dL (11.5-16.0); LYMPHOCYTES # (AUTO) 2.2 10^3/uL (1.0-4.0); LYMPHOCYTES % (AUTO) 28 % (12-44); MEAN CORPUSCULAR HEMOGLOBIN 31 pg (25-34); MEAN CORPUSCULAR HGB CONC 33 g/dL (32-36); MEAN CORPUSCULAR VOLUME 92 fL (80-99); MEAN PLATELET VOLUME 10.7 fL (9.0-12.2); MONOCYTES # (AUTO) 0.8 10^3/uL (0.0-1.0); MONOCYTES % (AUTO) 10 % (0-12); NEUTROPHILS # (AUTO) 4.7 10^3/uL (1.8-7.8); NEUTROPHILS % (AUTO) 60 % (42-75); PLATELET COUNT 271 10^3/uL (130-400); WHITE BLOOD COUNT 7.8 10^3/uL (4.3-11.0)
[2020-04-24 15:17] LABS: ALBUMIN 4.4 GM/DL (3.2-4.5); BILIRUBIN,TOTAL 0.5 MG/DL (0.1-1.0); CALCIUM 9.7 MG/DL (8.5-10.1); CREATININE SERUM 1.06 MG/DL (0.60-1.30); POTASSIUM 3.2 MMOL/L (3.6-5.0); TOTAL PROTEIN 7.4 GM/DL (6.4-8.2)
== END 2020-07-03 08:30 | disposition home or self-care (01) ==
LOC: ONC 14:50
PROVIDERS: ATTEND Internal Medicine Hematology & Oncology
DX: E83.110 Hereditary hemochromatosis (principal); D58.2 Other hemoglobinopathies; I10 Essential (primary) hypertension; E66.9 Obesity, unspecified; Z68.30 Body mass index [BMI] 30.0-30.9, adult
CPT/HCPCS: 80053; 82728; 85025

== ENCOUNTER → 2020-04-24 | Outpatient (CLI) | payer BC | LOC: ONC 16:32 | PROVIDERS: ATTEND Family Medicine | DX: E83.110 Hereditary hemochromatosis (principal) | CPT/HCPCS: 36415; 84443 ==

== ENCOUNTER 2020-07-22 14:25 | Outpatient (RCR) | payer BC ==
[2020-07-15 10:34] LABS: BASOPHILS % (AUTO) 1 % (0-10); EOSINOPHILS # (AUTO) 0.1 10^3/uL (0.0-0.3); EOSINOPHILS % (AUTO) 1 % (0-10); HEMATOCRIT 47 % (35-52); HEMOGLOBIN 15.7 g/dL (11.5-16.0); LYMPHOCYTES # (AUTO) 1.8 10^3/uL (1.0-4.0); LYMPHOCYTES % (AUTO) 25 % (12-44); MEAN CORPUSCULAR HEMOGLOBIN 31 pg (25-34); MEAN CORPUSCULAR HGB CONC 34 g/dL (32-36); MEAN CORPUSCULAR VOLUME 93 fL (80-99); MEAN PLATELET VOLUME 10.6 fL (9.0-12.2); MONOCYTES # (AUTO) 0.8 10^3/uL (0.0-1.0); MONOCYTES % (AUTO) 10 % (0-12); NEUTROPHILS # (AUTO) 4.6 10^3/uL (1.8-7.8); NEUTROPHILS % (AUTO) 63 % (42-75); PLATELET COUNT 259 10^3/uL (130-400); WHITE BLOOD COUNT 7.3 10^3/uL (4.3-11.0)
[2020-07-15 11:02] LABS: ALBUMIN 4.3 GM/DL (3.2-4.5); BILIRUBIN,TOTAL 0.4 MG/DL (0.1-1.0); CALCIUM 9.2 MG/DL (8.5-10.1); CREATININE SERUM 1.03 MG/DL (0.60-1.30); POTASSIUM 3.7 MMOL/L (3.6-5.0); TOTAL PROTEIN 7.1 GM/DL (6.4-8.2)
== END 2020-10-13 | disposition home or self-care (01) ==
LOC: ONC 14:25
PROVIDERS: ATTEND Internal Medicine Hematology & Oncology
DX: E83.110 Hereditary hemochromatosis (principal); D58.2 Other hemoglobinopathies
CPT/HCPCS: 80053; 82728; 85025; 99195; 99213

== ENCOUNTER → 2021-01-08 | Outpatient (CLI) | payer BC ==
[2021-01-08 16:54] LABS: BASOPHILS % (AUTO) 0 % (0-10); EOSINOPHILS # (AUTO) 0.1 10^3/uL (0.0-0.3); EOSINOPHILS % (AUTO) 2 % (0-10); HEMATOCRIT 46 % (35-52); HEMOGLOBIN 15.5 g/dL (11.5-16.0); LYMPHOCYTES # (AUTO) 2.2 10^3/uL (1.0-4.0); LYMPHOCYTES % (AUTO) 27 % (12-44); MEAN CORPUSCULAR HEMOGLOBIN 31 pg (25-34); MEAN CORPUSCULAR HGB CONC 34 g/dL (32-36); MEAN CORPUSCULAR VOLUME 92 fL (80-99); MEAN PLATELET VOLUME 10.5 fL (9.0-12.2); MONOCYTES # (AUTO) 0.6 10^3/uL (0.0-1.0); MONOCYTES % (AUTO) 7 % (0-12); NEUTROPHILS # (AUTO) 5.2 10^3/uL (1.8-7.8); NEUTROPHILS % (AUTO) 64 % (42-75); PLATELET COUNT 246 10^3/uL (130-400); WHITE BLOOD COUNT 8.2 10^3/uL (4.3-11.0)
== END ==
LOC: LAB 16:12
DX: E83.110 Hereditary hemochromatosis (principal)
CPT/HCPCS: 36415; 82728; 85025

== ENCOUNTER 2021-02-17 09:28 | Outpatient (RCR) | payer BC ==
[2021-02-10 09:29] LABS: BASOPHILS % (AUTO) 1 % (0-10); EOSINOPHILS # (AUTO) 0.1 10^3/uL (0.0-0.3); EOSINOPHILS % (AUTO) 1 % (0-10); HEMATOCRIT 47 % (35-52); HEMOGLOBIN 15.7 g/dL (11.5-16.0); LYMPHOCYTES # (AUTO) 1.6 10^3/uL (1.0-4.0); LYMPHOCYTES % (AUTO) 23 % (12-44); MEAN CORPUSCULAR HEMOGLOBIN 32 pg (25-34); MEAN CORPUSCULAR HGB CONC 33 g/dL (32-36); MEAN CORPUSCULAR VOLUME 95 fL (80-99); MEAN PLATELET VOLUME 10.6 fL (9.0-12.2); MONOCYTES # (AUTO) 0.6 10^3/uL (0.0-1.0); MONOCYTES % (AUTO) 8 % (0-12); NEUTROPHILS # (AUTO) 4.8 10^3/uL (1.8-7.8); NEUTROPHILS % (AUTO) 67 % (42-75); PLATELET COUNT 245 10^3/uL (130-400); WHITE BLOOD COUNT 7.2 10^3/uL (4.3-11.0)
[2021-02-10 10:05] LABS: ALBUMIN 4.1 GM/DL (3.2-4.5); BILIRUBIN,TOTAL 0.6 MG/DL (0.1-1.0); CALCIUM 9.2 MG/DL (8.5-10.1); CREATININE SERUM 1.03 MG/DL (0.60-1.30); POTASSIUM 3.2 MMOL/L (3.6-5.0)
== END 2021-05-11 | disposition home or self-care (01) ==
LOC: ONC 09:28
PROVIDERS: ATTEND Internal Medicine Hematology & Oncology
DX: E83.110 Hereditary hemochromatosis (principal); D58.2 Other hemoglobinopathies
CPT/HCPCS: 80053; 82728; 85025; 99195

== ENCOUNTER 2021-08-10 11:59 | Outpatient (RCR) | payer BC, OTHER ==
[2021-08-10 12:05] LABS: BASOPHILS # (AUTO) 0.1 10^3/uL (0.0-0.1); BASOPHILS % (AUTO) 1 % (0-10); EOSINOPHILS # (AUTO) 0.2 10^3/uL (0.0-0.3); EOSINOPHILS % (AUTO) 2 % (0-10); HEMATOCRIT 49 % (35-52); HEMOGLOBIN 16.2 g/dL (11.5-16.0); LYMPHOCYTES # (AUTO) 2.1 10^3/uL (1.0-4.0); LYMPHOCYTES % (AUTO) 22 % (12-44); MEAN CORPUSCULAR HEMOGLOBIN 31 pg (25-34); MEAN CORPUSCULAR HGB CONC 33 g/dL (32-36); MEAN CORPUSCULAR VOLUME 92 fL (80-99); MEAN PLATELET VOLUME 10.8 fL (9.0-12.2); MONOCYTES # (AUTO) 0.7 10^3/uL (0.0-1.0); MONOCYTES % (AUTO) 7 % (0-12); NEUTROPHILS # (AUTO) 6.6 10^3/uL (1.8-7.8); NEUTROPHILS % (AUTO) 69 % (42-75); PLATELET COUNT 274 10^3/uL (130-400); WHITE BLOOD COUNT 9.7 10^3/uL (4.3-11.0)
[2021-08-10 12:26] LABS: ALBUMIN 4.2 GM/DL (3.2-4.5); BILIRUBIN,TOTAL 0.5 MG/DL (0.1-1.0); CALCIUM 9.8 MG/DL (8.5-10.1); CREATININE SERUM 1.01 MG/DL (0.60-1.30); POTASSIUM 3.6 MMOL/L (3.6-5.0); TOTAL PROTEIN 7.4 GM/DL (6.4-8.2)
== END 2021-08-13 | disposition home or self-care (01) ==
LOC: ONC 11:59
PROVIDERS: ATTEND Internal Medicine Hematology & Oncology
DX: E83.110 Hereditary hemochromatosis (principal); D58.2 Other hemoglobinopathies
CPT/HCPCS: 36415; 80053; 82728; 85025

== ENCOUNTER 2021-08-18 08:59 | Outpatient (RCR) | payer OTHER | END 2021-09-12 | disposition home or self-care (01) | LOC: ONC 08:59 | PROVIDERS: ATTEND Internal Medicine Hematology & Oncology | DX: E83.110 Hereditary hemochromatosis (principal) | CPT/HCPCS: 99213 ==

== ENCOUNTER 2022-02-09 10:10 | Outpatient (RCR) | payer OTHER ==
[2022-02-09 10:30] LABS: BASOPHILS % (AUTO) 1 % (0-10); EOSINOPHILS # (AUTO) 0.1 10^3/uL (0.0-0.3); EOSINOPHILS % (AUTO) 2 % (0-10); HEMATOCRIT 46 % (35-52); HEMOGLOBIN 16.2 g/dL (11.5-16.0); LYMPHOCYTES # (AUTO) 1.7 10^3/uL (1.0-4.0); LYMPHOCYTES % (AUTO) 23 % (12-44); MEAN CORPUSCULAR HEMOGLOBIN 32 pg (25-34); MEAN CORPUSCULAR HGB CONC 35 g/dL (32-36); MEAN CORPUSCULAR VOLUME 92 fL (80-99); MEAN PLATELET VOLUME 10.6 fL (9.0-12.2); MONOCYTES # (AUTO) 0.7 10^3/uL (0.0-1.0); MONOCYTES % (AUTO) 9 % (0-12); NEUTROPHILS # (AUTO) 4.9 10^3/uL (1.8-7.8); NEUTROPHILS % (AUTO) 66 % (42-75); PLATELET COUNT 231 10^3/uL (130-400); WHITE BLOOD COUNT 7.4 10^3/uL (4.3-11.0)
[2022-02-09 10:51] LABS: ALBUMIN 4.2 GM/DL (3.2-4.5); BILIRUBIN,TOTAL 0.5 MG/DL (0.1-1.0); CALCIUM 9.5 MG/DL (8.5-10.1); CREATININE SERUM 0.95 MG/DL (0.60-1.30); POTASSIUM 3.5 MMOL/L (3.6-5.0); TOTAL PROTEIN 7.2 GM/DL (6.4-8.2)
== END 2022-02-11 10:01 | disposition home or self-care (01) ==
LOC: ONC 10:10
PROVIDERS: ATTEND Internal Medicine Hematology & Oncology
DX: E83.110 Hereditary hemochromatosis (principal)
CPT/HCPCS: 36415; 80053; 82728; 83540; 83550; 85025

== ENCOUNTER 2022-02-16 08:56 | Outpatient (RCR) | payer OTHER | END 2022-03-15 | disposition home or self-care (01) | LOC: ONC 08:56 | PROVIDERS: ATTEND Internal Medicine Hematology & Oncology | DX: E83.110 Hereditary hemochromatosis (principal) | CPT/HCPCS: 99213 ==